=== PATIENT | female | born 1950 | race Caucasian/White ===

== ENCOUNTER → 2017-02-01 | Outpatient (CLI) | payer OTHER | LOC: BRMIMAGING 10:58 | PROVIDERS: ATTEND Family Medicine | DX: M81.0 Age-related osteoporosis without current pathological fracture (principal) ==

== ENCOUNTER → 2017-11-23 | Outpatient (CLI) | payer OTHER | LOC: CIMAGING 09:09 | PROVIDERS: ATTEND Family Medicine | DX: Z12.31 Encounter for screening mammogram for malignant neoplasm of breast (principal) ==

== ENCOUNTER → 2019-01-16 | Outpatient (CLI) | payer OTHER | LOC: BRMIMAGING 08:26 ==